=== PATIENT | male | born 1960 | race African-American/Black ===

== ENCOUNTER 2018-08-02 18:58 | Inpatient (IN) | payer MEDICAID ==
[~2018-08-02] VITALS: Ht 165.1 cm; Wt 68.0 kg
[2018-08-03] MEDS ORDERED: KETOROLAC 30MG/ML VIAL IV STA (00:18)
[2018-08-03] MEDS ORDERED: SODIUM CHLORIDE 0.9% 1,000 ML IV ONE (00:18)
[2018-08-03] MEDS ORDERED: ONDANSETRON HCL 4MG/2ML INJ IV STA (00:18)
[2018-08-03 01:04] LABS: BASOPHILS % 0.8 % (0.0-2.0); HEMATOCRIT. 41.3 % (42.0-52.0); HEMOGLOBIN. 13.9 g/dL (14.0-18.0); LYMPHOCYTES % 18.3 % (20.0-50.0); MEAN CORPUSCULAR HEMOGLOBIN 29.3 pg (28.0-32.0); MEAN PLATELET VOLUME 8.9 fl (7.4-10.4); MONOCYTES % 8.7 % (2.0-8.0); NEUTROPHILS % 69.2 % (40.0-76.0); PLATELET 213 x1000/uL (130-400); RED BLOOD CELL COUNT 4.75 mill/uL (4.7-6.1); RED CELL DISTRIBUTION WIDTH 15.8 % (11.6-14.6)
[2018-08-03 01:10] LABS: CHLORIDE 109 mEq/L (98-107)
[2018-08-03 01:15] LABS: ETHANOL BLOOD < 10 mg/dL
[2018-08-03 02:17] LABS: *AMPHETAMINES SCREEN URINE NEGATIVE (NEGATIVE); *BARBITURATES SCREEN URINE NEGATIVE (NEGATIVE); *BENZODIAZEPINES SCREEN URINE NEGATIVE (NEGATIVE); *COCAINE SCREEN URINE PRESUMTIVE POSITIVE (NEGATIVE); CANNABINOID URINE SCREEN PRESUMTIVE POSITIVE (NEGATIVE); METHADONE URINE SCREEN NEGATIVE (NEGATIVE); OPIATES URINE SCREEN NEGATIVE (NEGATIVE); PHENCYCLIDINE URINE SCREEN NEGATIVE (NEGATIVE)
[2018-08-03] MEDS ORDERED: LIDOCAINE HCL/PF 1% 10 MG/ML 5ML VIAL IJ ONE (02:45)
[2018-08-03] MEDS ORDERED: DIPHENHYDRAMINE 50MG/ML VIAL IV PRN (08:15)
[2018-08-03] MEDS ORDERED: ACETAMINOPHEN 325MG TABLET PO PRN (08:15)
[2018-08-03] MEDS ORDERED: HYDROCODONE/ACETAMINOPHEN 5/325MG TABLET PO PRN (08:15)
[2018-08-03] MEDS ORDERED: DOCUSATE SODIUM 100MG CAPSULE PO PRN (08:15)
[2018-08-03] MEDS ORDERED: IPRATROPIUM/ALBUTEROL 0.5-3(2.5)MG/3ML NEB INH PRN (08:15)
[2018-08-03] MEDS ORDERED: ONDANSETRON HCL 4MG/2ML INJ IV PRN (08:15)
[2018-08-03] MEDS ORDERED: GUAIFENESIN 200MG/10ML SUGAR FREE UDC PO PRN (08:15)
[2018-08-03 09:22] LABS: PHOSPHORUS 2.3 mg/dL (2.5-4.9)
[2018-08-03 10:00] VITALS: BP 115/60
[2018-08-03] MEDS: ENOXAPARIN 40MG/0.4ML SYR SUBCUT SCH (11:45)
[2018-08-03 12:00] VITALS: BP 107/64
[2018-08-03 12:35] LABS: HEPATITIS B SURFACE ANTIGEN NEGATIVE
[2018-08-03 13:02] LABS: HEPATITIS A AB IGM NEGATIVE (NEGATIVE)
[2018-08-03 16:00] VITALS: BP 92/52
[2018-08-03 20:10] VITALS: BP 96/61
[2018-08-04 00:01] VITALS: BP 97/51
[2018-08-04 04:00] VITALS: BP 94/62
[2018-08-04 06:26] LABS: CHLORIDE 110 mEq/L (98-107)
[2018-08-04 06:32] LABS: LDL CHOLESTEROL 61 mg/dL (5-100)
[2018-08-04 06:34] LABS: HDL CHOLESTEROL 60 mg/dL (40-59)
[2018-08-04 06:42] LABS: BASOPHILS % 0.6 % (0.0-2.0); EOSINOPHILS % 4.8 % (0.0-5.0); HEMATOCRIT. 39.4 % (42.0-52.0); HEMOGLOBIN. 13.1 g/dL (14.0-18.0); LYMPHOCYTES % 23.1 % (20.0-50.0); MEAN CORPUSCULAR HEMOGLOBIN 29.1 pg (28.0-32.0); MEAN CORPUSCULAR VOLUME 87.9 fL (80.0-94.0); MEAN PLATELET VOLUME 9.5 fl (7.4-10.4); NEUTROPHILS % 61.5 % (40.0-76.0); PLATELET 186 x1000/uL (130-400); RED BLOOD CELL COUNT 4.48 mill/uL (4.7-6.1); RED CELL DISTRIBUTION WIDTH 15.7 % (11.6-14.6)
[2018-08-04 08:00] VITALS: BP 102/68
[2018-08-04] MEDS: ENOXAPARIN 40MG/0.4ML SYR SUBCUT SCH (08:05)
[2018-08-04 08:55] LABS: BG BASE EXCESS -1.9 mmol/L (-2.0-2.0); BG CARBOXYHEMOGLOBIN 1.2 % (0.5-1.5); BG DEOXYHEMOGLOBIN 2.6 % (0.0-5.0); BG HCO3 ACT 21.5 mmol/L (22.0-26.0); BG OXYGEN SATURATION 97.4 % (92.0-98.5); BG OXYHEMOGLOBIN 96.2 % (94.0-97.0); BG PCO2 33.2 mmHg (35.0-45.0); BG PO2 91.7 mmHg (75.0-100.0); BG SAMPLE SITE RIGHT BRACHIAL; BG TOTAL HEMOGLOBIN 14.3 g/dL (12.0-18.0); BG VENT MODE ROOM AIR
[2018-08-04 11:23] VITALS: BP 92/51
[2018-08-05 08:14] LABS: HIV SCREEN 4G Non Reactive (Non Reactive)
== END 2018-08-04 14:10 | disposition home or self-care (01) | DRG 204 ==
LOC: ER 18:58 → 6WST 08-03 03:25 → EDBEDREQ 08-03 03:32 → EDBEDREQTM 08-03 03:32 → ENRESERV 08-03 08:44
PROVIDERS: ADMIT Internal Medicine; ATTEND Internal Medicine
PROC: 2W3KX1Z Immobilization of Left Finger using Splint (ICD-10-PCS; principal; 2018-08-03)
PROC: 0RSXXZZ Reposition Left Finger Phalangeal Joint, External Approach (ICD-10-PCS; 2018-08-03)
DX: R55 Syncope and collapse (principal); E46 Unspecified protein-calorie malnutrition; F12.90 Cannabis use, unspecified, uncomplicated; F17.210 Nicotine dependence, cigarettes, uncomplicated; J44.9 Chronic obstructive pulmonary disease, unspecified; S00.81XA Abrasion of other part of head, initial encounter; X58.XXXA Exposure to other specified factors, initial encounter; Y93.89 Activity, other specified; Y92.89 Other specified places as the place of occurrence of the external cause; Y99.8 Other external cause status; S63.257A Unspecified dislocation of left little finger, initial encounter; W18.39XA Other fall on same level, initial encounter
CPT/HCPCS: 36415; 36600; 71045; 73130; 73140; 73630; 80061; 80305; 80320; 82375; 82805; 82962; 83036; 83735; 84100; 84443; 84484; 86705; 86709; 86803; 87340; 87389; 93005; 93306; 93880; 93970; 96361; 96374; 96375; 97162; 97166; 99291; J1650; J1885; J2405; J3490; J7030; G0480